=== PATIENT | male | born 1940 | race Caucasian/White ===

== ENCOUNTER 2019-08-27 07:11 | Outpatient (CLI) | payer MEDICARE, SELFPAY ==
[2019-08-27 07:28] LABS: Basophils Absolute Auto 0.02 K/mm3 (0.00-0.10); Basophils Percent Auto 0.4 % (0.0-1.0); Eosinophils Absolute Auto 0.14 K/mm3 (0.02-0.50); Eosinophils Percent Auto 2.6 % (1.0-6.0); Hematocrit 43.3 % (37.0-46.0); Hemoglobin 13.8 g/dL (12.4-15.3); Immature Granulocyte Absolute 0.02 K/mm3 (0.00-0.00); Immature Granulocyte Percent A 0.4 % (0.0-0.0); Lymphocytes Absolute Auto 1.74 K/mm3 (1.10-4.50); Mean Corpuscular HGB Conc 31.9 g/dL (32.0-36.0); Mean Corpuscular Hemoglobin 29.7 pg (27.0-31.0); Mean Corpuscular Volume 93.3 fL (78.0-102.0); Mean Platelet Volume 10.1 fl (8.7-11.0); Monocytes Absolute Auto 0.38 K/mm3 (0.10-0.90); Neutrophils Absolute Auto 3.1 K/mm3 (1.7-7.2); Neutrophils Percent Auto 57.6 % (50.0-70.0); Platelet Count Result 192 K/mm3 (150-420); Red Blood Count 4.64 M/mm3 (4.70-6.10); Red Cell Distribution Width 13.7 % (11.6-14.4); White Blood Count 5.4 K/mm3 (4.8-10.8)
[2019-08-27 08:55] LABS: Alanine Aminotransferase 22 U/L (16-63); Albumin Level 3.8 g/dL (3.4-5.0); Alkaline Phosphatase 53 U/L (46-116); Anion Gap 15.6 mmol/L (7-16); Aspartate Amino Transferase 18 U/L (15-37); Bilirubin,Total 0.5 mg/dL (0.00-1.00); Blood Urea Nitrogen 21 mg/dL (7-18); Calcium 8.4 mg/dL (8.5-10.1); Carbon Dioxide 27 mmol/L (21-32); Chloride 108 mmol/L (98-108); Cholesterol 203 mg/dL (0-200); Estimated Glomerular Filt Rate > 60; Glucose 85 mg/dL (70-99); HDL Direct 78 mg/dL (40-60); LDL Cholesterol Calculated 118 mg/dL (<130); Osmolality Calculated 304 mOsm/kg (285-295); Potassium 4.6 mmol/L (3.5-5.1); Prostate Specific Antigen 1.2 ng/mL (< OR = 4.0); Sodium 146 mmol/L (136-145); Thyroid Stimulating Hormone 2.03 uIU/mL (0.36-3.74); Total Protein 6.8 g/dL (6.4-8.2); Triglycerides 33 mg/dL (0-150)
== END 2019-08-27 07:12 | disposition home or self-care (01) ==
PROVIDERS: PCP Family Medicine; Visit Provider Family Medicine
DX: Z12.5 Encounter for screening for malignant neoplasm of prostate (principal); Z13.220 Encounter for screening for lipoid disorders; Z00.00 Encounter for general adult medical examination without abnormal findings
CPT/HCPCS: 36415; 80053; 80061; 84153; 84443; 85025; G0103

== ENCOUNTER 2021-01-25 07:13 | Outpatient (CLI) | payer MEDICARE, SELFPAY ==
[2021-01-25 07:28] LABS: Basophils Absolute Auto 0.02 K/mm3 (0.00-0.10); Basophils Percent Auto 0.3 % (0.0-1.0); Eosinophils Absolute Auto 0.23 K/mm3 (0.02-0.50); Eosinophils Percent Auto 3.1 % (1.0-6.0); Hematocrit 42.3 % (37.0-46.0); Hemoglobin 13.1 g/dL (12.4-15.3); Immature Granulocyte Absolute 0.04 K/mm3 (0.00-0.00); Immature Granulocyte Percent A 0.5 % (0.0-0.0); Lymphocytes Percent Auto 28.4 % (18.0-42.0); Mean Corpuscular Hemoglobin 29.6 pg (27.0-31.0); Mean Corpuscular Volume 95.5 fL (78.0-102.0); Mean Platelet Volume 9.7 fl (8.7-11.0); Monocytes Absolute Auto 0.62 K/mm3 (0.10-0.90); Monocytes Percent Auto 8.4 % (2.0-11.0); Neutrophils Absolute Auto 4.4 K/mm3 (1.7-7.2); Neutrophils Percent Auto 59.3 % (50.0-70.0); Platelet Count Result 208 K/mm3 (150-420); Red Blood Count 4.43 M/mm3 (4.70-6.10); White Blood Count 7.4 K/mm3 (4.8-10.8)
[2021-01-25 08:47] LABS: Alanine Aminotransferase 22 U/L (16-63); Albumin Level 3.6 g/dL (3.4-5.0); Alkaline Phosphatase 59 U/L (46-116); Anion Gap 11 mmol/L (8-16); Aspartate Amino Transferase 11 U/L (15-37); Bilirubin,Total 0.6 mg/dL (0.00-1.00); Blood Urea Nitrogen 24 mg/dL (7-18); Calcium 8.4 mg/dL (8.5-10.1); Carbon Dioxide 29 mmol/L (21-32); Chloride 104 mmol/L (98-108); Cholesterol 195 mg/dL (0-200); Estimated Glomerular Filt Rate > 60; Glucose 87 mg/dL (70-99); HDL Direct 66 mg/dL (40-60); LDL Cholesterol Calculated 113 mg/dL (<130); Osmolality Calculated 301 mOsm/kg (285-295); Potassium 4.6 mmol/L (3.5-5.1); Prostate Specific Antigen 2.2 ng/mL (< OR = 4.0); Sodium 144 mmol/L (136-145); Total Protein 6.4 g/dL (6.4-8.2); Triglycerides 82 mg/dL (0-150)
[2021-01-25 09:12] LABS: Thyroid Stimulating Hormone Reflex 1.69 u/IU/mL (0.36-3.74)
[2021-01-28 02:34] LABS: Vitamin D 25 Hydroxy 49 ng/mL (30-100)
== END 2021-01-25 07:14 | disposition home or self-care (01) ==
LOC: CHSLAB 07:15
PROVIDERS: PCP Family Medicine; Visit Provider Family Medicine
DX: E78.5 Hyperlipidemia, unspecified (principal); Z00.00 Encounter for general adult medical examination without abnormal findings; Z12.5 Encounter for screening for malignant neoplasm of prostate; Z85.46 Personal history of malignant neoplasm of prostate; E55.9 Vitamin D deficiency, unspecified
CPT/HCPCS: 36415; 80053; 80061; 82306; 84153; 84443; 85025; G0103

== ENCOUNTER 2021-02-12 08:00 | Outpatient (CLI) | payer MEDICARE, SELFPAY ==
--- NOTE | ~2021-02-12 | XR_ITS ---
XR hip LT 2V w AP pelvis 02/12/2021 08:18 Indication: Left hip pain Procedure: AP pelvis and 2 views left hip Comparison: No prior studies for comparison. Findings: There is moderate-severe osteoarthritis of the. Pelvic rings are intact. Sacral foramen are symmetric. No significant soft tissue abnormality. No foreign bodies. There is lower lumbar spondylo sis. Impression: 1: Moderate-severe osteoarthritis of the left hip. Reviewed, dictated and finalized at location A. Impression: 1: Moderate-severe osteoarthritis of the left hip.
== END 2021-02-12 08:01 | disposition home or self-care (01) ==
PROVIDERS: PCP Family Medicine; Visit Provider Family Medicine
DX: M25.552 Pain in left hip (principal); G89.29 Other chronic pain
CPT/HCPCS: 73502

== ENCOUNTER 2021-04-16 10:02 | Outpatient (CLI) | payer MEDICARE, SELFPAY ==
--- NOTE | 2021-04-16 10:57 | ECG_ITS ---
Measurements Intervals [place] Rate: 63 P: 44 NH: 116 QRS: -14 QRSD: 143 T: 15 QT: 425 QTc: 438 Interpretive Statements SINUS RHYTHM WITH SHORT NH INTERVAL RIGHT BUNDLE BRANCH BLOCK BASELINE ARTIFACT- I, II, AVR, AVL, AVF ABNORMAL ECG Electronically Signed On 04-16-2021 13:06:59 CDT by Gabriel Maynard D.O.
[2021-04-16 11:20] LABS: Basophils Percent Auto 0.6 % (0.2-1.2); Eosinophils Absolute Auto 0.1 K/mm3 (0-0.3); Eosinophils Percent Auto 1.3 % (0-4.4); Hematocrit 41.3 % (42.0-52.0); Immature Granulocyte Absolute 0.03 K/mm3 (0.00-0.031); Immature Granulocyte Percent A 0.4 % (0-0.5); Lymphocytes Absolute Auto 1.68 K/mm3 (0.9-3.2); Lymphocytes Percent Auto 24.2 % (18.3-44.2); Mean Corpuscular HGB Conc 31.5 g/dl (32-36); Mean Corpuscular Hemoglobin 30.3 pg (26-34); Mean Corpuscular Volume 96.3 fl (80-100); Mean Platelet Volume 9.8 fl (7.4-10.4); Monocytes Absolute Auto 0.5 K/mm3 (0.1-0.6); Monocytes Percent Auto 7.5 % (2.6-8.5); Neutrophils Absolute Auto 4.6 K/mm3 (1.3-6.7); Platelet Count Result 241 k/mm3 (150-375); Red Blood Count 4.29 M/mm3 (4.6-6.20); Red Cell Distribution Width 14.2 % (11.5-14.5); White Blood Count 6.9 K/mm3 (4.5-10.0)
[2021-04-16 11:24] LABS: Add Urine Microscopic? NO; Appearance Urine Clear (Clear); Bilirubin Urine Negative (Negative); Blood Urine Negative (Negative); Color Urine Straw (Yellow); Glucose Urine UA Negative (Negative); Ketones Urine Negative (Negative); Leukocyte Esterase Ur Negative LEU/UL (Negative); Nitrate Urine Negative (Negative); Protein Urine Negative (Negative); Specific Grav Ur 1.013 (1.001-1.035); Urobilinogen Urine Negative mg/dL (<2.0)
[2021-04-16 11:30] LABS: INR 0.8; Prothrombin Time 11.5 Seconds (11.1-14.7)
[2021-04-16 11:31] LABS: Partial Thromboplastin Time 27.6 SECONDS (22.3-36.8)
[2021-04-16 11:35] LABS: Albumin Level 4.5 g/dL (3.5-5.1); Anion Gap 8 mmol/L (8-16); Blood Urea Nitrogen 20 mg/dL (9-20); Calcium 9.3 mg/dL (8.4-10.2); Carbon Dioxide 30 mmol/L (22-30); Chloride 103 mmol/L (98-107); Estimated Glomerular Filt Rate > 60; Glucose 101 mg/dL (65-110); Potassium 4.2 mmol/L (3.4-5.0); Sodium 141 mmol/L (137-145)
[2021-04-16 11:50] LABS: Urine Cotinine NEGATIVE
[2021-04-16 12:20] LABS: Hemoglobin A1C 5.2 % (<5.7)
== END 2021-04-16 10:03 | disposition home or self-care (01) ==
LOC: ANHSURGERY 10:04
PROVIDERS: PCP Family Medicine; Visit Provider Orthopaedic Surgery
DX: Z01.818 Encounter for other preprocedural examination (principal); M16.12 Unilateral primary osteoarthritis, left hip; I45.10 Unspecified right bundle-branch block; L98.9 Disorder of the skin and subcutaneous tissue, unspecified; Z79.899 Other long term (current) drug therapy
CPT/HCPCS: 80048; 80307; 81003; 82040; 83036; 85025; 85610; 85730; 87081; 93005

== ENCOUNTER → 2021-04-27 00:35 | Outpatient (CLI) | payer MEDICARE, SELFPAY ==
[2021-04-27 18:23] LABS: SARS-CoV-2 RNA PCR Negative
== END ==
PROVIDERS: PCP Family Medicine; Visit Provider Orthopaedic Surgery
DX: Z01.812 Encounter for preprocedural laboratory examination (principal); Z20.822 Contact with and (suspected) exposure to COVID-19
CPT/HCPCS: C9803; U0003; U0005

== ENCOUNTER 2021-04-30 01:51 | Day surgery (SDC) | payer MEDICARE, SELFPAY ==
[2021-04-16 10:11] VITALS: BMI 28.3
[2021-04-16 10:51] VITALS: BP 154/72; PULSE 72; RESP 16; TEMP 36.9; O2SAT 97
[2021-04-30] VITALS (13 sets, daily range): BP systolic 107–158; BP diastolic 53–73; PULSE 72–88; RESP 10–20; TEMP 35.6–36.7; O2SAT 94–99
--- NOTE | ~2021-04-30 | XR_ITS ---
EXAMINATION: XR hip LT 1V DATE: 04/30/2021 10:36 INDICATION: EXAMINATION: XR hip LT 1V DATE: 04/30/2021 10:36 INDICATION: Postoperative evaluation following left total hip arthroplasty TECHNIQUE: Anteroposterior and lateral views of the left hip were obtained. COMPARISON: 04/18/2021 FINDINGS: Interval placement of a left total hip arthroplasty which appears well seated in near anatomic alignm ent. Expected subcutaneous gas in the postoperative bed. No fractures identified. IMPRESSION: 1. Left total hip arthroplasty, negative for postoperative purposes. TECHNIQUE: Anteroposterior view of the pelvis and anteroposterior, frog leg and cross-table lateral v iews of the affected hip were obtained. COMPARISON: None. FINDINGS: IMPRESSION: 1. Reviewed, dictated and finalized at location A. IMPRESSION: 1. Left total hip arthroplasty, negative for postoperative purposes. TECHNIQUE: Anteroposterior view of the pelvis and anteroposterior, frog leg and cross-table lateral views of the affected hip were obtained. COMPARISON: None. FINDINGS: IMPRESSION: 1.
--- NOTE | 2021-04-30 06:48 | WPDANESEPPF ---
Anes - Initial Pre Proc Eval Procedure: Operation Date: 04/30/21 07:30 Proposed Procedures p Left Total Hip Arthroplasty - Derek Wood MD Date/Time: 04/30/21 06:48 Surgeon: Derek Wood MD Pre Op Diagnosis: left hip DJD Patient Data Age: 80 Gender: M Height: 1.83 m Weight: 95.5 kg Last Vital Signs Temp 36.9 C 04/16/21 10:51 Pulse 72 04/16/21 10:51 Resp 16 04/16/21 10:51 BP 154/72 H 04/16/21 10:51 Pulse Ox 97 04/16/21 10:51 Allergies Allergy/AdvReac Type Severity Reaction Status Date / Time No Known Allergies Allergy Verified 04/30/21 06:07 Home Medications Medication Instructions Recorded Confirmed Type chlorhexidine gluconate 4 % 1 applic TOPICAL ONCE #237 ml 02/14/21 04/18/21 Rx topical liquid acetaminophen [Tylenol] 325 mg PO PRN PRN 04/16/21 04/30/21 History aspirin 325 mg PO PRN PRN 04/16/21 04/30/21 History calcium carbonate-vitamin D3 1 cap PO BID 04/16/21 04/30/21 History [Calcium With Vitamin D3] Patient hx anesthesia problems: none Family hx anesthesia problems: none Results Review: All pre-operative results and documents have been reviewed as part of the pre-operative evaluation. [facility] Past Medical History Medical History History of prostate cancer Prostate cancer Surgical History Surgical History History of appendectomy History of prostatectomy 07/2010 Hx of hernia repair right inguinal herna repair 2017 Family History Family History Father Malignant neoplasm of prostate Mother Acute myocardial infarction Social History Social History Smoking packs per day: 0.5 Smoking cigarettes per day: 10.0 Years smoked: 10 Smoking pack-years: 5.00 Tobacco type: cigarettes, pipe and cigars Smoking end date: 06/29/69 Additional smoking assessment comments: DENIES ANY FORM OF TOBACCO USE Alcohol intake: current Drinks per week: 10 Substance use: never Living arrangements: with family Gender identity (if verbalized by the patient): Male Spiritual care concerns: No Anes - Eval Final PreProcedure Day of Procedure 04/30/21 06:48 Heart: regular rate and rhythm Lungs: clear to auscultation Airway: Mallampati scale class II Neurological: alert and oriented Last oral intake: >/= 8 hours ASA classification: III Emergent: no Anesthetic plan: proceed Anesthesia type and monitoring: general ETT and standard monitoring Results Review: All pre-operative results and documents have been reviewed as part of the pre-operative evaluation. Informed Consent: The patient's anesthetic plan and its attendant risks and benefits were discussed with the patient/family/POA. Questions were solicited and answers provided to the satisfaction of the patient/family/POA.
[2021-04-30] MEDS: ACETAMINOPHEN 500 MG TABLET 1000 MG PO (06:49)
[2021-04-30] MEDS: LACTATED RINGERS 1,000 ML 30 ML IV CONT ×2 (07:02→10:16)
[2021-04-30] MEDS: TRANEXAMIC ACID 1,000MG/ISO100 1,000 MG/100 ML BAG 200 MG IVPB (07:03)
--- NOTE | 2021-04-30 07:34 | WPDHPUPDATE1 ---
History and Physical Update Update Date/Time: 04/30/21 07:34 History and Physical has been reviewed, including an updated exam of the patient. There are NO changes in the patient's condition. Risks, benefits, and alternatives have been discussed and questions answered. Patient agrees to proceed with procedure.
[2021-04-30] MEDS: ceFAZolin 2 GM/D5W 50 ML 2 GM/50 ML BAG IVPB ×2 (07:37→16:13)
[2021-04-30] MEDS: TRANEXAMIC ACID 1,000 MG/10 ML AMPUL 1000 MG IV PUSH (09:42)
--- NOTE | 2021-04-30 10:32 | W.PM.PROC2 ---
Procedure Note - Detailed Date of Procedure 04/30/21 Pre-op Diagnosis left hip DJD Post-op Diagnosis same Procedure Performed L DONYA Surgeon Derek Wood MD Anesthesia general Description of Procedure THE PATIENT WAS TAKEN TO THE OPERATING ROOM IN STABLE CONDITION AND WAS PLACED IN THE LATERAL DECUBITUS AND THE LEFT LOWER EXTREMITY WAS PREPPED AND DRAPED IN THE STERILE FASHION. INCISION WAS MADE IN THE POSTERIOR LATERAL SIDE OF THE HIP, DOWN TO THE FASCIA LAYER. THE FASCIA WAS INCISED. THE HIP WAS EXPOSED. THE SHORT EXTERNAL ROTATORS WERE EXPOSED. THE SCIATIC NERVE WAS IDENTIFIED. INCISION WAS MADE THROUGH THE SHORT EXTERNAL ROTATORS AND THE CAPSULE OF THE HIP JOINT. THE HIP WAS DISLOCATED. AN OSTEOTOMY WAS MADE TO THE FEMORAL NECK ABOUT 1 CM PROXIMAL TO THE LESSER TROCHANTER. THE ACETABULUM WAS EXPOSED. THERE WAS SEVERE DJD SEEN. BEGINNING WITH A 49 REAMER THE ACETABULUM WAS REAMED TO 55 MM. A 55 MM TRIAL WAS PLACED IN 35 DEG OF ABDUCTION AND ANTEVERSION WAS IN ALIGNMENT WITH THE TRANS ACETABULAR LIGAMENT. THE FIT WAS EXCELLENT. THE TRIAL WAS REMOVED. A 56 MM BIOMET G7 COMPONENT WAS THEN TAPPED IN TO PLACE IN 35 DEG OF ABDUCTION AND ANTEVERSION IN ALIGNMENT WITH THE TRANSVERSE ACETABULAR LIGAMENT. THE FIT WAS EXCELLENT. THE ACETABULAR LINER WAS PLACED AND CHECKED FOR STABILITY. NEXT THE FEMUR WAS PREPARED WITH INITIAL CANAL FINDER THEN SEQUENTIAL BROACHING WITH A TAPERLOC HIP SYSTEM, UNTIL A 14 BROACH FIT WELL IN 15 OF ANTEVERSION. A +6 HIGH OFFSET NECK WITH 36 MM HEAD TRIAL WAS PLACED. THE SHUCK TEST WAS EXCELLENT AND THE STABILITY IN FLEXION AND ROTATION WAS EXCELLENT. LEG LENGTHS WERE GROSSLY EQUAL. TRIALS WERE REMOVED. A BIOMET TAPERLOC 14 STEM WAS PLACED WITH A HIGH OFFSET NECK THE FIT WAS EXCELLENT IN 15 DEG OF ANTEVERSION. A +6 CERAMIC 36 MM FEMORAL CERAMIC HEAD WAS PLACED. THE HIP WAS TRIALED AND THE STABILITY WAS EXCELLENT WERE THE LEG LENGTHS AND THE SHUCK TEST. THE WOUND WAS IRRIGATED WITH STERILE BETADINE AND WATER FOR 3 MIN. THEN WASHED AGAIN. THE CAPSULE AND THE EXTERNAL ROTATORS WERE APPROXIMATED WITH NUMBER 1 VICRYL. THE FASCIA WITH No 2 QUIL AND THE SUB CUTANEOUS LAYER WITH 2-0 ABSORBABLE SUTURE WITH A RUNNING 3-0 SUBCUTICULAR LAYER WELL. DERMABOND WAS PLACED AND STERILE DRESSING WAS APPLIED. PATIENT WAS PLACED BACK ON TO THE SUPINE POSITION AND WAS EXTUBATED Estimated Blood Loss 100 Complications No immediate complications Condition stable Disposition PACU
[2021-04-30 11:59] LABS: Hematocrit 35.2 % (42.0-52.0); Hemoglobin 11.4 g/dL (14.0-18.0)
--- NOTE | 2021-04-30 12:34 | ADMGEN ---
This patient, Star Freeman, was admitted to Medical Room 243-01. Patient/family oriented to hospital policies and general routines including ID bracelet, bed and alarms, visiting hours, pain management, procedures, bathroom and other care routines, personal items, smoking policy, room service/diet, and visiting hours. Information on how to activate the Rapid Response Team has been discussed. Patient/Family are encouraged to report perceived risks to care and to ask questions if they do not understand what they are told or what they should do. Patient in bed resting comfortably with no complaints at this time. Will continue to monitor patient.
--- NOTE | 2021-04-30 13:00 | WPDCN ---
Assessment and Plan Assessment and plan (1) Degenerative joint disease of left hip: Qualifiers: Osteoarthritis type: primary Qualified Code(s): M16.12 - Unilateral primary osteoarthritis, left hip Code(s): M16.12 - Unilateral primary osteoarthritis, left hip Status: Acute Assessment and Plan: Postoperative day 0, status post left total hip arthroplasty. Wound care, pain control, and DVT prophylaxis deferred to Dr. Wood. PT/OT consulted. Fall precautions initiated. (2) Acute blood loss anemia: Code(s): D62 - Acute posthemorrhagic anemia Status: Acute Assessment and Plan: Estimated blood loss during surgery was 100 mL. Hemoglobin and hematocrit done after surgery showed a 1.6 g drop from labs drawn on 04/16/2021. Repeat CBC in a.m. Additional Plan Thank you for allowing us to participate in this patient's care. Please do not hesitate to contact us with any questions. Supervising physician for this medical consultation is Dr. Etta Head. HPI Data of Consult Date/Time: 04/30/21 13:00 Requesting Physician: Derek Wood MD Primary Care Provider: David Tomas MD Consult Narrative Narrative: This is a very healthy 80-year-old male with degenerative joint disease of the left hip status post elective right total hip arthroplasty whom the hospitalist service has been consulted for medical management postoperatively. He developed gradual pain in his left hip over the years and is now to the point where he is ambulating with a cane with a slight limp due to ongoing pain. Conservative outpatient treatment has failed to provide him with longstanding relief and he elected for replacement today. His surgery was performed under general anesthesia with no immediate complications documented an estimated blood loss of 100 mL. Postoperatively he has done quite well and has had minimal pain. He has been up to the chair and ambulating to the bathroom with a walker without issue. He denies postoperative fever, chills, chest pain, shortness of breath, nausea, and vomiting. He also denies paresthesias, skin color, temperature changes distal to the surgical site. On discharge the patient will be returning to the home that he shares with his . Review of Systems Review of Systems: Twelve systems were reviewed. No fever, chills, sweats. No recent cold or flu-like symptoms. No syncope or near syncope. No history of venous thromboembolism. Except as documented, all other systems were reviewed and are negative. [facility] Past Medical History Medical History (Updated 04/30/21 @ 13:18 by Jackie Hernandez PA-C) Degenerative joint disease Hearing loss Prostate cancer Surgical History Surgical History (Updated 04/30/21 @ 13:11 by Jackie Hernandez PA-C) History of appendectomy (04/10/15) History of bilateral cataract extraction History of prostatectomy (07/2010) History of right inguinal hernia repair (2016) Family History Family History Father Malignant neoplasm of prostate Mother Acute myocardial infarction Social History Social History (Updated 04/30/21 @ 22:58 by Jackie Hernandez PA-C) Social History: Surrogate decision maker: Lucy Freeman () or Bonitasandie Lucas (daughter). Code status: Full code. Smoking packs per day: 0.5 Smoking cigarettes per day: 10.0 Years smoked: 8 Smoking pack-years: 4.00 Smoking status: Former smoker Tobacco type: cigarettes, pipe and cigars Smoking end date: 06/29/69 Alcohol intake: current Drinks per week: 6 Substance use: never Substance use type: does not use Living arrangements: with family Additional living arrangements comments: The patient lives in [place] with his . Additional occupation/education comments: [employer]
[2021-04-30] MEDS: ACETAMINOPHEN 325 MG TABLET 650 MG PO ×2 (14:31→20:32)
[2021-04-30] MEDS: DOCUSATE SODIUM 100 MG CAPSULE PO (16:09)
[2021-04-30] MEDS: FAMOTIDINE 20 MG TABLET PO (20:37)
[2021-04-30] MEDS: ASPIRIN 325 MG ENTERIC TABLET PO (20:37)
[2021-05-01] MEDS: ceFAZolin 2 GM/D5W 50 ML 2 GM/50 ML BAG IVPB ×2 (00:52→09:01)
[2021-05-01 01:30] VITALS: BP 107/46; PULSE 85; RESP 16; TEMP 36.8; O2SAT 94
[2021-05-01 05:16] LABS: Basophils Percent Auto 0.1 % (0.2-1.2); Hematocrit 34.1 % (42.0-52.0); Hemoglobin 11.1 g/dL (14.0-18.0); Immature Granulocyte Absolute 0.03 K/mm3 (0.00-0.031); Immature Granulocyte Percent A 0.3 % (0-0.5); Lymphocytes Absolute Auto 1.22 K/mm3 (0.9-3.2); Lymphocytes Percent Auto 11.2 % (18.3-44.2); Mean Corpuscular HGB Conc 32.6 g/dl (32-36); Mean Corpuscular Hemoglobin 30.3 pg (26-34); Mean Corpuscular Volume 93.2 fl (80-100); Mean Platelet Volume 10.6 fl (7.4-10.4); Monocytes Absolute Auto 1.4 K/mm3 (0.1-0.6); Monocytes Percent Auto 12.8 % (2.6-8.5); Neutrophils Absolute Auto 8.2 K/mm3 (1.3-6.7); Neutrophils Percent Auto 75.6 % (45.5-73.1); Platelet Count Result 206 k/mm3 (150-375); Red Blood Count 3.66 M/mm3 (4.6-6.20); Red Cell Distribution Width 14.4 % (11.5-14.5); White Blood Count 10.9 K/mm3 (4.5-10.0)
[2021-05-01 05:30] VITALS: BP 124/59; PULSE 81; RESP 20; TEMP 36.8; O2SAT 98
[2021-05-01 05:38] LABS: Anion Gap 6 mmol/L (8-16); Blood Urea Nitrogen 19 mg/dL (9-20); Calcium 8.9 mg/dL (8.4-10.2); Carbon Dioxide 27 mmol/L (22-30); Chloride 102 mmol/L (98-107); Estimated CRCL calculation 55 ml/min; Estimated Glomerular Filt Rate > 60; Glucose 129 mg/dL (65-110); Magnesium 2.2 mg/dL (1.6-2.3); Potassium 4.5 mmol/L (3.4-5.0); Sodium 135 mmol/L (137-145)
[2021-05-01] MEDS: ASPIRIN 325 MG ENTERIC TABLET PO (09:01)
[2021-05-01] MEDS: FAMOTIDINE 20 MG TABLET PO (09:02)
--- NOTE | 2021-05-01 09:28 | P.PNAN_ITS ---
Anes - Prog Note Post-Op Date/Time: 05/01/21 09:28 Cardiovascular status: normal Respiratory status: normal Airway patency: baseline Mental status: baseline Post-Op hydration status: normal Vital Signs: Last Vital Signs Temp 36.8 C 05/01/21 05:30 Pulse 81 05/01/21 05:30 Resp 20 05/01/21 05:30 BP 124/59 L 05/01/21 05:30 Pulse Ox 98 05/01/21 05:30 Pain Score (VAS): 0 I/O: Intake & Output 04/30/21 05/01/21 05/01/21 23:59 07:59 15:59 Intake Total 1490 550 240 Output Total 450 700 Balance 1040 -150 240 Laboratory Tests 05/01/21 04:30 05/01/21 04:30 04/30/21 05/01/21 05/01/21 11:50 04:30 04:30 WBC 10.9 H RBC 3.66 L Hgb 11.4 L 11.1 L Hct 35.2 L 34.1 L MCV 93.2 MCH 30.3 MCHC 32.6 RDW 14.4 Plt Count 206 MPV 10.6 H Immature Gran % (Auto) 0.3 Neut % (Auto) 75.6 H Lymph % (Auto) 11.2 L [place] % (Auto) 12.8 H Eos % (Auto) 0.0 Baso % (Auto) 0.1 L Lymph # (Auto) 1.22 [place] # (Auto) 1.4 H Eos # (Auto) 0.0 Baso # (Auto) 0.0 Abs Immat Gran (auto) 0.03 Absolute Neuts (auto) 8.2 H Absolute Nucleated RBC 0.0 Nucleated RBC % 0.0 Sodium 135 L Potassium 4.5 Chloride 102 Carbon Dioxide 27 Anion Gap 6 L BUN 19 Creatinine 1.00 Estim Creat Clear Calc 55 Estimated GFR > 60 Glucose 129 H Calcium 8.9 Magnesium 2.2 Post-procedural complaints: none Patient Feedback: Patient satisfied with anesthetic care.
[2021-05-01 10:40] VITALS: BP 130/80; PULSE 97; RESP 20; TEMP 37.2; O2SAT 96
--- NOTE | 2021-05-01 14:41 | PM.IMPN ---
Progress Note: A&P Assessment and Plan (1) Degenerative joint disease of left hip: Qualifiers: Osteoarthritis type: primary Qualified Code(s): M16.12 - Unilateral primary osteoarthritis, left hip Code(s): M16.12 - Unilateral primary osteoarthritis, left hip Status: Acute (2) S/P total left hip arthroplasty: Code(s): Z96.642 - Presence of left artificial hip joint Status: Acute (3) Acute blood loss anemia: Code(s): D62 - Acute posthemorrhagic anemia Status: Acute (4) History of prostate cancer: Code(s): Z85.46 - Personal history of malignant neoplasm of prostate Status: Acute (5) Leukocytosis: Qualifiers: Leukocytosis type: unspecified Qualified Code(s): D72.829 - Elevated white blood cell count, unspecified Code(s): D72.829 - Elevated white blood cell count, unspecified Status: Acute (6) Hyponatremia: Code(s): E87.1 - Hypo-osmolality and hyponatremia Status: Acute Additional Plan Patient is currently doing well and pain is well managed. Continue to monitor. PT OT to see the patient. DVT prophylaxis as per orthopedics. He is noted to be on 09/15 5 mg of aspirin b.i.d. Time Spent With Patient Time with patient: 15 - 25 minutes Subjective Date/time seen: 05/01/21 14:41 Interval history: 80-year-old male with past medical history significant for prostate cancer status post prostatectomy and osteoarthritis presented status post elective right total hip arthroplasty. Internal Medicine has been consulted for medical management. Patient had an uneventful procedure with minimum EPL and is currently doing well. He denies any concerns nausea vomiting, chest pain, shortness of or that this time. Pain is well controlled Review of Systems Review of Systems: A 10 point review of system was conducted which was otherwise negative Exam Narrative: General: Well-developed elderly male supine in bed no distress. He is hard of hearing. Weight: 95.5 kg. BMI: 20.6. HEENT: PERRL, EOMI. Sclerae anicteric. Oral mucosa moist. Oropharynx clear. Neck: Supple. Respiratory: Lungs are clear to auscultation bilaterally. Cardiovascular: Regular rate and rhythm with S1-S2. Gastrointestinal: Abdomen is soft, nontender, and nondistended with positive bowel sounds. Skin: Warm and dry. No rash or lesions on limited exam. Extremities: No cyanosis, clubbing, or edema. Radial and pedal pulses intact. Musculoskeletal: Left hip dressing is clean, dry, and intact. No swelling or hematoma noted around the incision site. Cooling pads in place. He is neurovascular intact distal to the surgical site. Neurological: Alert. Cranial nerves 2-12 grossly intact. No gross focal deficits to casual conversation. Psychiatric: Pleasant and cooperative with normal mood and affect. Judgment and insight intact. Objective Data Vital Signs Vital Signs: Vital Signs - 24 hr 04/30/21 17:30 04/30/21 20:55 05/01/21 01:30 Temperature 97.7 F 98.0 F 98.3 F Pulse Rate 72 72 85 Respiratory Rate 16 16 16 Blood Pressure 118/60 108/53 L 107/46 L Pulse Oximetry 98 96 94 05/01/21 05:30 05/01/21 10:40 Temperature 98.2 F 98.9 F Pulse Rate 81 97 Respiratory Rate 20 20 Blood Pressure 124/59 L 130/80 Pulse Oximetry 98 96 Intake/Output Intake/Output: Intake & Output 04/28/21 04/29/21 04/30/21 05/01/21 23:59 23:59 23:59 23:59 Intake Total 1980 960 Output Total 450 700 Balance 1530 260 Meds/Results Medications: Active Medications Generic Name Dose Route Start Last Admin Trade Name Freq PRN Reason Stop Dose Admin Acetaminophen 650 mg 04/30/21 11:33 04/30/21 20:32 Acetaminophen 325 Mg Tablet PO 650 mg Q6H PRN Administration Mild Pain (1-3) or Fever Hydrocodone Bitart/Acetaminophen 1 tab 04/30/21 11:33 Hydrocodone/Acetaminophen (*Crx) 7.5-325 Mg Tablet PO Q3H PRN Pain Rated 4-6 Al Hydrox/Mg Hydrox/Simethicone 30 ml
[2021-05-01 15:40] VITALS: BP 120/61; PULSE 95; RESP 20; TEMP 37.2; O2SAT 95
--- NOTE | 2021-05-01 15:46 | PM.PNORT ---
Progress Note: A&P Assessment and Plan (1) S/P total left hip arthroplasty: Code(s): Z96.642 - Presence of left artificial hip joint Status: Acute Additional Plan POD 1 DOING WELL AND HAS PAST PT. HE IS SATBLE FOR DC HOME. HE WILL F/U IN 3 WEEKS. Time Spent With Patient Time with patient: 15 - 25 minutes Subjective Subjective Date/Time Seen: 05/01/21 15:46POD 1 DOING WELL. PASSED PT. NO CP OR SOB, NO CALF PAIN Review of Systems Review of Systems: All systems reviewed & are unremarkable except as noted in HPI and below Exam Extrem: Other: VSS AFEBRILE DRESSING DRY NV INTACT NEG HOMANS SIGN, CALF SOFT NON TENDER Objective Data Vital Signs Vital Signs: Vital Signs - 24 hr 04/30/21 17:30 04/30/21 20:55 05/01/21 01:30 Temperature 36.5 C 36.7 C 36.8 C Pulse Rate 72 72 85 Respiratory Rate 16 16 16 Blood Pressure 118/60 108/53 L 107/46 L Pulse Oximetry 98 96 94 05/01/21 05:30 05/01/21 10:40 05/01/21 15:40 Temperature 36.8 C 37.2 C 37.2 C Pulse Rate 81 97 95 Respiratory Rate 20 20 20 Blood Pressure 124/59 L 130/80 120/61 Pulse Oximetry 98 96 95 Intake/Output Intake/Output: Intake & Output 04/28/21 04/29/21 04/30/21 05/01/21 23:59 23:59 23:59 23:59 Intake Total 1980 960 Output Total 450 700 Balance 1530 260 Meds/Results Medications: Active Medications Generic Name Dose Route Start Last Admin Trade Name Freq PRN Reason Stop Dose Admin Acetaminophen 650 mg 04/30/21 11:33 04/30/21 20:32 Acetaminophen 325 Mg Tablet PO 650 mg Q6H PRN Administration Mild Pain (1-3) or Fever Hydrocodone Bitart/Acetaminophen 1 tab 04/30/21 11:33 Hydrocodone/Acetaminophen (*Crx) 7.5-325 Mg Tablet PO Q3H PRN Pain Rated 4-6 Al Hydrox/Mg Hydrox/Simethicone 30 ml 04/30/21 11:33 Mag Hydrox/Al Hydrox/Simeth 30 Ml Udc PO Q6H PRN Indigestion Aspirin 325 mg 04/30/21 21:00 05/01/21 09:01 Aspirin 325 Mg Enteric Tablet PO 325 mg Q12HR SUZETTE Administration Diazepam 5 mg 04/30/21 11:33 Diazepam (*Crx) 5 Mg Tablet PO Q6H PRN Anxiety/Muscle Spasm Docusate Sodium 100 mg 04/30/21 17:00 05/01/21 09:02 Docusate Sodium 100 Mg Capsule PO Not Given BID SUZETTE Famotidine 20 mg 04/30/21 21:00 05/01/21 09:02 Famotidine 20 Mg Tablet PO 20 mg Q12HR SUZETTE Administration Hydroxyzine HCl 50 mg 04/30/21 11:33 Hydroxyzine Hcl 25 Mg Tablet PO Q4H PRN Itching Magnesium Hydroxide 30 ml 04/30/21 11:33 Magnesium Hydroxide Susp 30 Ml Udc PO BID PRN Constipation Morphine Sulfate 3 mg 04/30/21 11:33 Morphine Sulfate (*Crx) 4 Mg/Ml Inj IV PUSH Q3H PRN Pain Rated 7-10 Naloxone HCl 0.1 mg 04/30/21 11:33 Naloxone Hcl 0.4 Mg/Ml Vial IV PUSH Q2M PRN Opiate Reversal Ondansetron HCl 4 mg 04/30/21 11:33 Ondansetron Inj 4 Mg/2 Ml Vial IV PUSH Q4H PRN Nausea And Vomiting Sodium Chloride 1 spray 05/01/21 02:48 Saline 0.65% Mc Soln 44 Ml Btl NASAL Q6HR PRN Congestion Radiology Results: ITS Impressions Hip X-Ray 04/30/21 10:40 IMPRESSION: 1. Left total hip arthroplasty, negative for postoperative purposes. TECHNIQUE: Anteroposterior view of the pelvis and anteroposterior, frog leg and cross-table lateral views of the affected hip were obtained. COMPARISON: None. FINDINGS: IMPRESSION: 1. Labs Labs: Laboratory Results - last 24 hr 05/01/21 05/01/21 04:30 04:30 WBC 10.9 H RBC 3.66 L Hgb 11.1 L Hct 34.1 L MCV 93.2 MCH 30.3 MCHC 32.6 RDW 14.4 Plt Count 206 MPV 10.6 H Immature Gran % (Auto) 0.3 Neut % (Auto) 75.6 H Lymph % (Auto) 11.2 L [place] % (Auto) 12.8 H Eos % (Auto) 0.0 Baso % (Auto) 0.1 L Lymph # (Auto) 1.22 [place] # (Auto) 1.4 H Eos # (Auto) 0.0 Baso # (Auto) 0.0 Abs Immat Gran (auto) 0.03 Absolute Neuts (auto) 8.2 H Absolute Nucleated RBC 0.0
--- NOTE | 2021-05-01 15:49 | PM.DS ---
DS: Admitting Diagnosis Discharge Date 05/01/21 Admitting Diagnosis LEFT HIP DJD DS: Discharge Diagnosis Discharge Diagnosis (1) S/P total left hip arthroplasty: Code(s): Z96.642 - Presence of left artificial hip joint Status: Acute DS: Summary Hospital Course Hospital Course: PATIENT UNDERWENT LEFT DONYA WITH NO COMPLICATIONS. POSTOP HE WAS SENT TO THE ORTHO FLOOR. HE HAD A REGULAR DIET AND DVT PROPHYLAXIS. HIS PAIN WAS WELL CONTROLLED. ON POD 1 HE WAS DOING WELL WITH PT AND WAS EVENTUALLY STABLE FOR DC TO HOME WITH DVT PROPHYLAXIS, HOME HEALTH AND PT. HE WOULD F/U IN 3 WEEKS TIME. HE WILL CALL FOR ANY PROBLEMS Time spent discussing smoking cessation with patient: more than 10 minutes Status at Discharge Functional status at discharge: uses cane/walker Time Spent with Patient Time attestation: Total time spent providing and/or coordinating discharge services: Time spent: Less than 30 minutes DS: Data Data Completed and Pending Labs on day of discharge: Labs from last 24 hours 05/01/21 05/01/21 04:30 04:30 WBC 10.9 H RBC 3.66 L Hgb 11.1 L Hct 34.1 L MCV 93.2 MCH 30.3 MCHC 32.6 RDW 14.4 Plt Count 206 MPV 10.6 H Immature Gran % (Auto) 0.3 Neut % (Auto) 75.6 H Lymph % (Auto) 11.2 L [place] % (Auto) 12.8 H Eos % (Auto) 0.0 Baso % (Auto) 0.1 L Lymph # (Auto) 1.22 [place] # (Auto) 1.4 H Eos # (Auto) 0.0 Baso # (Auto) 0.0 Abs Immat Gran (auto) 0.03 Absolute Neuts (auto) 8.2 H Absolute Nucleated RBC 0.0 Nucleated RBC % 0.0 Sodium 135 L Potassium 4.5 Chloride 102 Carbon Dioxide 27 Anion Gap 6 L BUN 19 Creatinine 1.00 Estim Creat Clear Calc 55 Estimated GFR > 60 Glucose 129 H Calcium 8.9 Magnesium 2.2 Discharge Plan Discharge Patient Disposition: Home Health Service Discharge Instructions: Post Op Total Hip Replacement Instructions Dr. Derek Wood [phone] ? Your dressing will be changed prior to your discharge. You will be sent home with one additional dressing to be changed in 5 days by the home health RN. Keep incision covered x14 days. Your incision was closed with dermabond, allow the dermabond to fall off naturally and do not disrupt incision healing. ? You may shower with your dressing but do not submerge in a bath tub. ? Do not drive or operate machinery until you are released by Dr. Wood. ? Do not walk without a walker for any reason until you are released by Dr. Wood. ? Continue to apply ice to the hip intermittently for additional pain relief. Protect your skin with a towel or pillow case. ? Continue to follow strict total hip replacement precautions. ? Your follow up appointment is indicated in your discharge instructions. ? Your medications have been sent to your pharmacy. ? Please contact our office with any questions/concerns regarding your hip at [phone]. Per Care Coordination, pt. will discharge home with [facility] for continued PT/OT/Chcf. Patient Instructions: Antibiotic Form Stand Alone Forms: General Discharge Information Follow-up/Referrals: Derek Wood MD [Physician] - Keep Reg. Scheduled Appt. Discharge Medications: No Action acetaminophen [Tylenol] 325 mg Tablet 325 mg PO PRN PRN (Reason: Pain) RF: 0 aspirin 325 mg Capsule 325 mg PO PRN PRN (Reason: Pain) RF: 0 Quality VTE Prophylaxis VTE prophylaxis: mechanical ordered and pharmacologic ordered
== END 2021-05-01 16:56 | disposition home health service (06) ==
LOC: ANHSURGERY 05:55 → ANH2MED 11:44
PROVIDERS: PCP Family Medicine; Visit Provider Orthopaedic Surgery
PROC: (CPT 27130; principal; 2021-04-30 07:30)
DX: M16.12 Unilateral primary osteoarthritis, left hip (principal); Z20.822 Contact with and (suspected) exposure to COVID-19; M25.552 Pain in left hip; Z79.82 Long term (current) use of aspirin; Z85.46 Personal history of malignant neoplasm of prostate; D62 Acute posthemorrhagic anemia; E87.1 Hypo-osmolality and hyponatremia; D72.829 Elevated white blood cell count, unspecified; Z87.891 Personal history of nicotine dependence; Z79.899 Other long term (current) drug therapy
CPT/HCPCS: 27130; 36415; 73501; 80048; 80307; 81003; 82040; 83036; 83735; 85014; 85018; 85025; 85610; 85730; 86850; 86900; 86901; 87081; 93005; 97110; 97116; 97161; 97165; 97530; 97535; A9270; C1713; C1776; C9803; J0171; J0690; J1100; J1170; J2270; J2370; J2405; J2704; J2710; J2795; J3010; J7120; U0003; U0005

== ENCOUNTER 2021-05-21 07:54 | Outpatient (RCR) | payer MEDICARE, SELFPAY ==
--- NOTE | 2021-05-21 08:52 | PTOPEVAL ---
Thank you for referring Star Freeman to [facility].? The patient is scheduled to be seen for therapy? __3__x/week for 12 visits. Please review, sign, date and return this plan of care BRENDAN. I agree with and certify that the following plan of care is medically necessary. Referring Physician Date Admitting Provider: Attending Provider: Derek Wood MD Referring Provider: *PT Outpatient Evaluation Start: 05/21/21 08:03 Freq: Status: Active Protocol: Document 05/21/21 08:04 MURPHY (Rec: 05/21/21 08:51 MURPHY [email or web address]) Therapy Assessment Status Assessment Status Assessment Status Evaluation Outpatient Past Medical History Neurological History Hx Neurological Disorders No Significant History Cardiovascular History Hx Other Cardiac Disorders Yes: HX RBBB Respiratory History Hx Respiratory Disorders No Significant History Gastrointestinal History Hx Appendectomy Yes Hx Hernia Yes: 2016 RT INGUINAL HERNIA REPAIR Genitourinary History 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 Musculoskeletal History 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 Hematological History Hx Hematological Disorders No Significant History Endocrine History Hx Endocrine Disorders No Significant History HEENT History Hx Cataracts Yes: BILAT REMOVED Hx Other HEENT Disorders Yes: [place]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 reports that he underwent Query Text:As Reported By Patient/ left DONYA on 04/30/21. He Family reports that for the past 2 weeks he has been doing HH care. He reports that he is currently using a walker for ambulation. He reports that he has returned to driving. He reports that he is doing stairs 1 at a time. He reports that prior to surgery he was very active with o
--- NOTE | 2021-06-20 09:53 | PTOPEVAL ---
Thank you for referring Star Freeman to [facility] The patient is scheduled to be seen for therapy? ____x/week for ___ weeks. Please review, sign, date and return this plan of care BRENDAN. I agree with and certify that the following plan of care is medically necessary. Referring Physician Date Admitting Provider: Attending Provider: Derek Wood MD Referring Provider: *PT Outpatient Evaluation Start: 05/21/21 08:03 Freq: Status: Active Protocol: Document 06/20/21 08:59 ACR (Rec: 06/20/21 09:52 ACR [email or web address]) Therapy Assessment Status Assessment Status Assessment Status Discharge Outpatient Past Medical History Neurological History Hx Neurological Disorders No Significant History Cardiovascular History Hx Other Cardiac Disorders Yes: HX RBBB Respiratory History Hx Respiratory Disorders No Significant History Gastrointestinal History Hx Appendectomy Yes Hx Hernia Yes: 2017 RT INGUINAL HERNIA REPAIR Genitourinary History 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 Musculoskeletal History 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 Hematological History Hx Hematological Disorders No Significant History Endocrine History Hx Endocrine Disorders No Significant History HEENT History Hx Cataracts Yes: BILAT REMOVED Hx Other HEENT Disorders Yes: [place] WEARS BILAT HEARING AIDS Integumentary History Hx Skin Disorders No Significant History Reproductive History Hx Reproductive Disorders No Significant History Psychosocial History Hx Psychiatric Disorders No Significant History Pain History History of Any Previous or Ongoing No Significant History Instance of Pain Anesthesia History Hx Anesthesia Reactions No Significant History Other History Hx Cancer Yes: PROSTATE Evaluation Information Problem Diagnosis left DONYA Onset 04/30/21 Subjective Information Patient reports that he is Query Text:As Reported By Patient/ doing well, but still has Family difficulty with his balance. He states when he is in the shower and closes his eyes, he still has to hold onto something because he is so unbalances. Patient states that his walking is pretty normalized, but the more he sits and rests the more things stiffen up. Overall, the patient is feel
== END 2021-06-20 10:41 | disposition home or self-care (01) ==
LOC: CHSPT 07:54
PROVIDERS: Visit Provider Orthopaedic Surgery
DX: Z96.642 Presence of left artificial hip joint (principal)
CPT/HCPCS: 97110; 97112; 97161

== ENCOUNTER 2022-01-28 07:27 | Outpatient (CLI) | payer MEDICARE, SELFPAY ==
[2022-01-28 07:37] LABS: Basophils Absolute Auto 0.06 K/mm3 (0.00-0.10); Basophils Percent Auto 0.8 % (0.0-1.0); Eosinophils Absolute Auto 0.22 K/mm3 (0.02-0.50); Eosinophils Percent Auto 2.9 % (1.0-6.0); Hematocrit 39.4 % (37.0-46.0); Hemoglobin 12.3 g/dL (12.4-15.3); Immature Granulocyte Absolute 0.04 K/mm3 (0.00-0.00); Immature Granulocyte Percent A 0.5 % (0.0-0.0); Lymphocytes Percent Auto 26.4 % (18.0-42.0); Mean Corpuscular HGB Conc 31.2 g/dL (32.0-36.0); Mean Corpuscular Hemoglobin 29.1 pg (27.0-31.0); Mean Corpuscular Volume 93.4 fL (78.0-102.0); Mean Platelet Volume 9.8 fl (8.7-11.0); Monocytes Percent Auto 9.2 % (2.0-11.0); Neutrophils Absolute Auto 4.6 K/mm3 (1.7-7.2); Neutrophils Percent Auto 60.2 % (50.0-70.0); Platelet Count Result 233 K/mm3 (150-420); Red Blood Count 4.22 M/mm3 (4.70-6.10); Red Cell Distribution Width 14.6 % (11.6-14.4); White Blood Count 7.6 K/mm3 (4.8-10.8)
[2022-01-28 08:31] LABS: Alanine Aminotransferase 16 U/L (16-63); Albumin Level 3.3 g/dL (3.4-5.0); Alkaline Phosphatase 73 U/L (46-116); Anion Gap 4 mmol/L (8-16); Aspartate Amino Transferase 13 U/L (15-37); Bilirubin,Total 0.4 mg/dL (0.00-1.00); Blood Urea Nitrogen 23 mg/dL (7-18); Calcium 8.7 mg/dL (8.5-10.1); Carbon Dioxide 31 mmol/L (21-32); Chloride 108 mmol/L (98-108); Cholesterol 196 mg/dL (0-200); Estimated Glomerular Filt Rate > 60; Glucose 93 mg/dL (70-99); HDL Direct 65 mg/dL (40-60); LDL Cholesterol Calculated 120 mg/dL (<130); Osmolality Calculated 299 mOsm/kg (285-295); Potassium 4.6 mmol/L (3.5-5.1); Prostate Specific Antigen 3.1 ng/mL (< OR = 4.0); Sodium 143 mmol/L (136-145); Total Protein 6.4 g/dL (6.4-8.2); Triglycerides 56 mg/dL (0-150); Vitamin B12 481 pg/mL (193-986)
[2022-01-28 08:34] LABS: Thyroid Stimulating Hormone Reflex 1.37 u/IU/mL (0.36-3.74)
[2022-02-03 07:28] LABS: Vitamin D 25 Hydroxy 44 ng/mL (30-100)
== END 2022-01-28 07:28 | disposition home or self-care (01) ==
LOC: CHSLAB 07:28
PROVIDERS: PCP Family Medicine; Visit Provider Family Medicine
DX: E55.9 Vitamin D deficiency, unspecified (principal); E53.8 Deficiency of other specified B group vitamins; Z00.00 Encounter for general adult medical examination without abnormal findings; Z79.899 Other long term (current) drug therapy; Z13.29 Encounter for screening for other suspected endocrine disorder; Z12.5 Encounter for screening for malignant neoplasm of prostate
CPT/HCPCS: 36415; 80053; 80061; 82306; 82607; 84153; 84443; 85025; G0103

== ENCOUNTER 2023-02-10 07:25 | Outpatient (CLI) | payer MEDICARE, SELFPAY ==
[2023-02-10 07:38] LABS: Basophils Absolute Auto 0.02 K/mm3 (0.00-0.10); Basophils Percent Auto 0.3 % (0.0-1.0); Eosinophils Absolute Auto 0.18 K/mm3 (0.02-0.50); Hematocrit 39.3 % (37.0-46.0); Hemoglobin 12.5 g/dL (12.4-15.3); Immature Granulocyte Absolute 0.02 K/mm3 (0.00-0.00); Immature Granulocyte Percent A 0.3 % (0.0-0.0); Lymphocytes Absolute Auto 2.21 K/mm3 (1.10-4.50); Lymphocytes Percent Auto 36.7 % (18.0-42.0); Mean Corpuscular HGB Conc 31.8 g/dL (32.0-36.0); Mean Corpuscular Hemoglobin 30.2 pg (27.0-31.0); Mean Corpuscular Volume 94.9 fL (78.0-102.0); Mean Platelet Volume 9.6 fl (8.7-11.0); Monocytes Absolute Auto 0.47 K/mm3 (0.10-0.90); Monocytes Percent Auto 7.8 % (2.0-11.0); Neutrophils Absolute Auto 3.1 K/mm3 (1.7-7.2); Neutrophils Percent Auto 51.9 % (50.0-70.0); Platelet Count Result 189 K/mm3 (150-420); Red Blood Count 4.14 M/mm3 (4.70-6.10); Red Cell Distribution Width 15.2 % (11.6-14.4)
[2023-02-10 08:59] LABS: Alanine Aminotransferase 12 U/L (16-63); Albumin Level 3.6 g/dL (3.4-5.0); Alkaline Phosphatase 58 U/L (46-116); Anion Gap 5 mmol/L (8-16); Aspartate Amino Transferase 12 U/L (15-37); Bilirubin,Total 0.6 mg/dL (0.00-1.00); Blood Urea Nitrogen 26 mg/dL (7-18); Calcium 8.7 mg/dL (8.5-10.1); Carbon Dioxide 31 mmol/L (21-32); Chloride 108 mmol/L (98-108); Cholesterol 192 mg/dL (0-200); Estimated Glomerular Filt Rate > 60; Ferritin 304 ng/mL (26-388); Folic Acid 10.8 ng/mL (8.6->20); Glucose 98 mg/dL (70-99); HDL Direct 78 mg/dL (40-60); Iron 62 ug/dL (65-175); LDL Cholesterol Calculated 105 mg/dL (<130); Osmolality Calculated 302 mOsm/kg (285-295); Percent Iron Saturation 26 % (12-57); Potassium 5.4 mmol/L (3.5-5.1); Prostate Specific Antigen 3.6 ng/mL (< OR = 4.0); Sodium 144 mmol/L (136-145); Total Protein 6.5 g/dL (6.4-8.2); Triglycerides 46 mg/dL (0-150); Vitamin B12 366 pg/mL (193-986)
[2023-02-10 09:01] LABS: Thyroid Stimulating Hormone Reflex 1.85 u/IU/mL (0.36-3.74)
[2023-02-16 21:15] LABS: Vitamin D 25 Hydroxy 46 ng/mL (30-100)
== END 2023-02-10 07:26 | disposition home or self-care (01) ==
LOC: CHSLAB 07:27
PROVIDERS: PCP Family Medicine; Visit Provider Family Medicine
DX: E55.9 Vitamin D deficiency, unspecified (principal); Z13.29 Encounter for screening for other suspected endocrine disorder; Z79.899 Other long term (current) drug therapy; Z12.5 Encounter for screening for malignant neoplasm of prostate; E78.5 Hyperlipidemia, unspecified; D64.9 Anemia, unspecified
CPT/HCPCS: 36415; 80053; 80061; 82306; 82607; 82728; 82746; 83540; 83550; 84153; 84443; 85025; G0103

== ENCOUNTER 2023-02-20 08:38 | Outpatient (CLI) | payer MEDICARE, SELFPAY ==
[2023-02-20 10:00] LABS: Anion Gap 8 mmol/L (8-16); Blood Urea Nitrogen 29 mg/dL (7-18); Calcium 8.8 mg/dL (8.5-10.1); Carbon Dioxide 28 mmol/L (21-32); Chloride 107 mmol/L (98-108); Estimated Glomerular Filt Rate > 60; Glucose 93 mg/dL (70-99); Osmolality Calculated 301 mOsm/kg (285-295); Potassium 4.7 mmol/L (3.5-5.1); Sodium 143 mmol/L (136-145)
== END 2023-02-20 08:39 | disposition home or self-care (01) ==
LOC: CHSLAB 08:39
PROVIDERS: PCP Family Medicine; Visit Provider Family Medicine
DX: E87.5 Hyperkalemia (principal)
CPT/HCPCS: 36415; 80048

== ENCOUNTER → 2023-03-26 14:19 | Outpatient (CLI) | payer MEDICARE, SELFPAY ==
--- NOTE | ~2023-03-26 | XR_ITS ---
EXAMINATION: XR knee RT min 4V DATE: 03/26/2023 14:29 INDICATION: Right knee pain TECHNIQUE: Four views of the right knee were obtained. COMPARISON: None. FINDINGS: Alignment is normal. No fracture or osteochondral lesion. There is mild tricompartmental os teoarthritis characterized by tiny marginal osteophytes. No joint effusion/synovitis. There is media l soft tissue swelling of the knee. Calcified atherosclerosis is noted. IMPRESSION: 1. Soft tissue swelling without acute osseous abnormality. Reviewed, dictated and finalized at location F.
== END ==
PROVIDERS: PCP Family Medicine; Visit Provider Family Medicine
DX: M25.561 Pain in right knee (principal); R22.41 Localized swelling, mass and lump, right lower limb
CPT/HCPCS: 73564

== ENCOUNTER 2023-03-31 08:30 | Outpatient (RCR) | payer MEDICARE, SELFPAY ==
--- NOTE | 2023-03-30 11:59 | PTOPEVAL1 ---
Assessment and note entered by Billy Jackson Evaluation Information Diagnosis right knee pain Onset 03/13/23 Subjective Information Pt. reports that he was showering and had is foot on a shower chair washing his leg. He states that the foot slipped off the chair and felt a pain in the knee. he describes pain on the inside of the knee cap. He reports that he had xray, but did not hear his results. He reports that he uses apercreme and tylenol and can get through the day. He reports that pain is worst in the night. He states that he lives alone and is very active. He reports that he does a lot of yard work, but is having trouble due to his recent pain increase. He reports that his goal is to decrease his right knee pain. Reported Pain Level Pain Score 3: Self Report Assessment PT Clinical Summary Pt. is an 82 year old male who enters the clinic with right knee pain. He presents with impaired gait, impaired strength and pain. Continued skilled PT is indicated in order to improve these areas to allow the pt. to achieve improved comfort with all IADL's. Plan of Care Interventions Electrical Stimulation,Gait Training,Hot Pack/Cold Pack,Manual Therapy,Neuro Re-education,Patient/ Caregiver Educati,Therapeutic Activities, Therapeutic Exercise PT Services Indicated Yes Treatment Frequency and 2x/week x 6 visits Duration These treatments will address the objective and functional deficits as defined above. The patient will be advanced safely and appropriately in order for the patient to progress towards his/her prior level of function. Additional exercises will be introduced and as well as a comprehensive home exercise program upon discharge, if needed, ?to ensure carryover of functional gains achieved in the clinic. This treatment plan has been reviewed and agreement upon by the patient.
--- NOTE | 2023-03-30 12:00 | OPREHPOC ---
Outpatient Therapy Plan of Care This is a Multidisciplinary Plan of Care that may contain components documented by all disciplines (PT, OT, and ST.) PT Problem 1 PT Problem #1 Knowledge Deficit PT Goal 1 Goal Pt. will be independent with a HEP addressing strength and mobility Target Visit 2 PT Problem 2 PT Problem #2 Impaired Range of Motion PT Goal 1 Goal Pt. will demonstrate full right knee extension AROM Target Visit 6 PT Problem 3 PT Problem #3 Impaired Gait PT Goal 1 Goal Pt. will be able to ambulate over level surface for 10 minute duration without reported knee pain and equal stance time. PT Problem 4 PT Problem #4 Pain PT Goal 1 Goal Pt. will report 0/10 pain at the right knee for a 1 week period. Target Visit 6
--- NOTE | 2023-04-16 09:55 | PTOPDC ---
Assessment and note entered by Geovanna Grayson, PT Evaluation Information Assessment Status Discharge Diagnosis R knee pain Onset 03/13/23 Subjective Information Star Ureña reports his right knee pain has improved quite a bit since initiating PT. He notes he can sleep undisturbed, can walk as much as he needs to, and can perform yard work. He still gets occasional pain when he first stands up after sitting for a long time. Pain subsides quickly though. He feels he has improved 95% since initiating PT. Reported Pain Level Pain Score 0: Self Report Assessment PT Clinical Summary Star Ureña has completed 6 skilled PT visits for right knee pain. He is reporting a 95% overall improvement since initiating PT and only has occasional pain when he first stands after prolonged sitting. He demonstrates improved right knee AROM, improved hip and knee strength, improved gait, and resolved tenderness. He has met all PT goals and will be discharged to an independent HEP. Plan of Care PT Services Indicated Yes
--- NOTE | 2023-04-16 09:55 | OPREHPOC ---
Outpatient Therapy Plan of Care This is a Multidisciplinary Plan of Care that may contain components documented by all disciplines (PT, OT, and ST.) PT Problem 1 PT Problem #1 Knowledge Deficit PT Goal 1 Goal Pt. will be independent with a HEP addressing strength and mobility Target Visit 2 Progress Met PT Problem 2 PT Problem #2 Impaired Range of Motion PT Goal 1 Goal Pt. will demonstrate full right knee extension AROM Target Visit 6 Progress Met PT Problem 3 PT Problem #3 Impaired Gait PT Goal 1 Goal Pt. will be able to ambulate over level surface for 10 minute duration without reported knee pain and equal stance time. Progress Met PT Problem 4 PT Problem #4 Pain PT Goal 1 Goal Pt. will report 0/10 pain at the right knee for a 1 week period. Target Visit 6 Progress Met
== END 2023-04-16 14:05 | disposition home or self-care (01) ==
LOC: CHSPT 08:30
PROVIDERS: Visit Provider Family Medicine
DX: M25.561 Pain in right knee (principal)
CPT/HCPCS: 97014; 97110; 97161; 97530; G0283

== ENCOUNTER 2024-03-25 07:06 | Outpatient (CLI) | payer MEDICARE, SELFPAY ==
[2024-03-25 07:19] LABS: Basophils Absolute Auto 0.04 K/mm3 (0.00-0.10); Basophils Percent Auto 0.6 % (0.0-1.0); Eosinophils Absolute Auto 0.18 K/mm3 (0.02-0.50); Eosinophils Percent Auto 2.7 % (1.0-6.0); Hematocrit 39.8 % (37.0-46.0); Hemoglobin 12.7 g/dL (12.4-15.3); Immature Granulocyte Absolute 0.02 K/mm3 (0.00-0.00); Immature Granulocyte Percent A 0.3 % (0.0-0.0); Lymphocytes Absolute Auto 2.17 K/mm3 (1.10-4.50); Lymphocytes Percent Auto 32.3 % (18.0-42.0); Mean Corpuscular HGB Conc 31.9 g/dL (32-36); Mean Corpuscular Hemoglobin 30.6 pg (27.0-31.0); Mean Corpuscular Volume 95.9 fL (78.0-102.0); Mean Platelet Volume 9.7 fl (8.7-11.0); Monocytes Absolute Auto 0.55 K/mm3 (0.10-0.90); Monocytes Percent Auto 8.2 % (2.0-11.0); Neutrophils Absolute Auto 3.75 K/mm3 (1.70-7.20); Neutrophils Percent Auto 55.9 % (50.0-70.0); Platelet Count Result 185 K/mm3 (150-420); Red Blood Count 4.15 M/mm3 (4.70-6.10); White Blood Count 6.7 K/mm3 (4.8-10.8)
[2024-03-25 08:42] LABS: Hemoglobin A1C 5.3 % (<5.7)
[2024-03-25 10:28] LABS: Alanine Aminotransferase 19 U/L (16-63); Albumin Level 3.6 g/dL (3.4-5.0); Alkaline Phosphatase 53 U/L (46-116); Anion Gap 8 mmol/L (4-12); Aspartate Amino Transferase 14 U/L (15-37); Bilirubin,Total 0.6 mg/dL (0.00-1.00); Blood Urea Nitrogen 19 mg/dL (7-18); Calcium 8.8 mg/dL (8.5-10.1); Carbon Dioxide 28 mmol/L (21-32); Chloride 105 mmol/L (98-108); Cholesterol 209 mg/dL (0-200); Estimated Glomerular Filt Rate > 60; Glucose 89 mg/dL (70-99); HDL Direct 77 mg/dL (40-60); LDL Cholesterol Calculated 123 mg/dL (<130); Osmolality Calculated 293 mOsm/kg (285-295); Potassium 4.7 mmol/L (3.5-5.1); Prostate Specific Antigen 3.7 ng/mL (< OR = 4.0); Sodium 141 mmol/L (136-145); Thyroid Stimulating Hormone Reflex 2.09 u/IU/mL (0.36-3.74); Total Protein 6.4 g/dL (6.4-8.2); Triglycerides 45 mg/dL (0-150); Vitamin B12 360 pg/mL (193-986)
[2024-03-26 10:28] LABS: Vitamin D 25 Hydroxy 46 ng/mL (30-100)
== END 2024-03-25 07:07 | disposition home or self-care (01) ==
PROVIDERS: PCP Family Medicine; Visit Provider Family Medicine
DX: R73.9 Hyperglycemia, unspecified (principal); E55.9 Vitamin D deficiency, unspecified; I10 Essential (primary) hypertension; E78.5 Hyperlipidemia, unspecified; Z12.5 Encounter for screening for malignant neoplasm of prostate; E53.8 Deficiency of other specified B group vitamins; E87.5 Hyperkalemia
CPT/HCPCS: 36415; 80053; 80061; 82306; 82607; 83036; 84153; 84443; 85025; G0103

== ENCOUNTER 2025-03-24 07:05 | Outpatient (CLI) | payer MEDICARE, SELFPAY ==
--- OUTSIDE RECORDS SUMMARY | 2025-03-24 07:08 | XMS_ITS | Clinical Summary ---
Author Organization [facility] Address [facility] [place] [address] Care Team Providers Care Associate Financial Advisor Name Role Phone None, Provider MD Primary Care Provider Unavaila ble Allergies No known active allergies Medications No known medications Immunizations Immunization Administration Dates Next Due Tdap (Adacel) 04/23/2019 Social History Tobacco Use Types Packs/Day Years Used Date Smoking Tobacco: Never Smokeless Tobacco: Never Alcohol Use Standard Drinks/Week Comments Yes 0 (1 standard drink = 0.6 oz pur e alcohol) Sex and Gender Information Value Date Recorded Sex Assigned at Not on file Legal Sex Male 7:19 PM CDT Gender Identity Not on file Sexual Orientation Not on file Last Filed Vital Signs Vital Sign Reading Time Taken Comments Blood Pressure 163/87 04/23/2019 1:20 PM CDT Pulse 80 04/23/2019 1:20 PM CDT Temperature 36.6 C (97.8 F) 04/23/2019 1:20 PM CDT Respiratory Rate 18 04/23/2019 1:20 PM CDT Oxygen Saturation 98% 04/23/2019 1:20 PM CDT Inhaled Oxygen Concentration - - Weight 86.2 kg (190 lb) 04/23/2019 1:20 PM CDT Height 177.8 cm (5' 10) 04/23/2019 1:20 PM CDT Body Mass Index 27.26 04/23/2019 1:20 PM CDT Plan of Treatment Health Maintenance Due Date Last Done Comments Pneumococcal Vaccine: 50+ Ye ars (1 of 1 - PCV) 1988 Zoster Vaccines (1 of 2) 1988 Annual Medicare Wellness Visit 2003 RSV Immunization or 60+ Years (1 - 1-dose 75+ series) 2013 COVID-19 Vaccine (1 - 2023-2 5 season) 2025 DTaP, Tdap and Td Vaccines ( 2 - Td or Tdap) 04/23/2029 04/23/2019 Meningococcal B Vaccine Aged Out No l onger eligible based on patient's age to complete this topic Meningococcal Vaccine Aged Out No dano rachell eligible based on patient's age to complete this topic RSV Immunizations Under 20 Months Aged Out No longer eligible based on patient's age to complete this topic Insurance [facility] Care Teams Associate Financial Advisor Relationship Specialty Start Date End Date None, Provider, PCP - General 04/23/19
[2025-03-24 07:24] LABS: Hematocrit 39.1 % (37.0-46.0); Hemoglobin 12.2 g/dL (12.4-15.3); Immature Granulocyte Percent A 0.3 % (0.0-0.0); Lymphocytes Absolute Auto 1.83 K/mm3 (1.10-4.50); Mean Corpuscular HGB Conc 31.2 g/dL (32-36); Mean Corpuscular Hemoglobin 30.6 pg (27.0-31.0); Mean Corpuscular Volume 98.0 fL (78.0-102.0); Nucleated Red Blood Cells Absolute Auto 0.00 K/mm3 (0.00-0.00); Nucleated Red Blood Cells Perc 0.0 % (0-0.0); Platelet Count Result 193 K/mm3 (150-420); Red Blood Count 3.99 M/mm3 (4.70-6.10); White Blood Count 6.1 K/mm3 (4.8-10.8)
[2025-03-24 08:17] LABS: Alanine Aminotransferase 14 U/L (6-50); Albumin Level 4.1 g/dL (3.5-5.1); Alkaline Phosphatase 44 U/L (38-126); Anion Gap 6 mmol/L (4-12); Aspartate Amino Transferase 23 U/L (17-59); Bilirubin,Total 0.7 mg/dL (0.2-1.3); Blood Urea Nitrogen 22 mg/dL (9-20); Calcium 9.5 mg/dL (8.4-10.2); Carbon Dioxide 29 mmol/L (22-30); Chloride 107 mmol/L (98-107); Cholesterol 199 mg/dL (0-200); Estimated Glomerular Filt Rate > 60; Glucose 95 mg/dL (65-110); HDL Direct 76 mg/dL; Osmolality Calculated 297 mOsm/kg (285-295); Potassium 5.4 mmol/L (3.4-5.0); Sodium 142 mmol/L (137-145); Total Protein 6.6 g/dL (6.3-8.2); Triglycerides 56 mg/dL (<150)
[2025-03-24 08:47] LABS: Thyroid Stimulating Hormone Reflex 2.000 uIU/mL (0.465-4.68)
[2025-03-24 08:48] LABS: Prostate Specific Antigen 3.6 ng/mL (< OR = 4.0)
[2025-03-24 09:08] LABS: Vitamin B12 351.0 pg/mL (239-931)
== END 2025-03-24 07:06 | disposition home or self-care (01) ==
LOC: CHSLAB 07:06
PROVIDERS: PCP Family Medicine; Visit Provider Family Medicine
DX: I10 Essential (primary) hypertension (principal); E87.5 Hyperkalemia; E78.5 Hyperlipidemia, unspecified; E53.8 Deficiency of other specified B group vitamins; E55.9 Vitamin D deficiency, unspecified; Z12.5 Encounter for screening for malignant neoplasm of prostate
CPT/HCPCS: 36415; 80053; 80061; 82306; 82607; 84153; 84443; 85025; G0103

== ENCOUNTER 2025-03-28 07:13 | Outpatient (CLI) | payer MEDICARE, SELFPAY ==
--- OUTSIDE RECORDS SUMMARY | 2025-03-28 07:16 | XMS_ITS | Clinical Summary ---
Author Organization [facility] Address [facility] [place] [address] Care Team Providers Care Biodiesel Production Associate Name Role Phone None, Provider MD Primary [...] patient's age to complete this topic Insurance [facility] Care Teams Biodiesel Production Associate Relationship Specialty Start Date End Date None, Provider, PCP - General 04/23/19
[2025-03-28 07:58] LABS: Anion Gap 8 mmol/L (4-12); Blood Urea Nitrogen 21 mg/dL (9-20); Calcium 9.3 mg/dL (8.4-10.2); Carbon Dioxide 28 mmol/L (22-30); Chloride 106 mmol/L (98-107); Estimated Glomerular Filt Rate > 60; Glucose 100 mg/dL (65-110); Osmolality Calculated 297 mOsm/kg (285-295); Potassium 5.1 mmol/L (3.4-5.0); Sodium 142 mmol/L (137-145)
== END 2025-03-28 07:14 | disposition home or self-care (01) ==
LOC: CHSLAB 07:13
PROVIDERS: PCP Family Medicine; Visit Provider Family Medicine
DX: E87.5 Hyperkalemia (principal)
CPT/HCPCS: 36415; 80048